=== PATIENT | male | born 1935 | race Caucasian/White ===

== ENCOUNTER 2016-11-29 15:26 | Outpatient (CLI) | payer MEDICARE, OTHER | END 2016-11-29 15:27 | disposition home or self-care (01) | DX: D64.9 Anemia, unspecified (principal) ==

== ENCOUNTER 2016-12-04 10:30 | Outpatient (CLI) | payer MEDICARE, OTHER | END 2016-12-04 10:31 | disposition home or self-care (01) | DX: D64.9 Anemia, unspecified (principal) ==

== ENCOUNTER 2017-01-18 10:00 | Outpatient (CLI) | payer MEDICARE, OTHER | END 2017-01-18 10:01 | disposition home or self-care (01) | DX: D64.9 Anemia, unspecified (principal) ==

== ENCOUNTER 2017-02-05 11:28 | Outpatient (CLI) | payer MEDICARE, OTHER | END 2017-02-05 11:29 | disposition home or self-care (01) | DX: C61 Malignant neoplasm of prostate (principal) ==

== ENCOUNTER 2017-08-06 12:43 | Outpatient (CLI) | payer MEDICARE, OTHER | END 2017-08-06 12:44 | disposition home or self-care (01) | LOC: LAB.N 12:43 | PROVIDERS: ATTEND Urology | DX: C61 Malignant neoplasm of prostate (principal) | CPT/HCPCS: 36415; 84153 ==

== ENCOUNTER 2018-03-27 09:58 | Emergency (ER) | payer MEDICARE, OTHER ==
--- NOTE | 2018-03-27 11:56 | XRAY Preliminary Report ---
Exam: XR HAND 3 VIEW LT IMPRESSION: No fracture or obvious posttraumatic bone or joint abnormality. 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 Areas of moderate soft tissue swelling, as discussed above as well. [facility] SITE ID: [id number]
--- NOTE | 2018-03-27 12:03 | XRAY Report ---
EXAM: LEFT HAND RADIOGRAPHY, 3 VIEWS EXAM DATE: 03/27/2018 11:39 AM. CLINICAL HISTORY: Contusion dorsal pain/swelling left hand, with pain in the MCP joint area of all di gits, in an 82-year-old male. COMPARISON: None. TECHNIQUE: Frontal, lateral and oblique views. FINDINGS: Bones: Hypertrophic spurring at multiple IP joints secondary to long-standing osteoarthritis. No frac ture, lytic or destructive process. Joints: Mild to moderate osteoarthritic changes in the MCP joints, worst in the first through third w ith moderate to severe osteoarthritis with hypertrophic changes and degenerative bone cysts at severa l levels, worst at the PIP joint of the ring finger and DIP joints of the index and fifth digit. 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 Moderate osteoarthritis radial aspect of the carpus. Carpus otherwise intact. Soft Tissues: Soft tissue swelling diffusely over the dorsum of the wrist and metacarpals without sof t tissue gas or foreign body. Mild to moderate soft tissue swelling of the third through fifth digits as well. IMPRESSION: No fracture or obvious posttraumatic bone or joint abnormality. 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 Areas of moderate soft tissue swelling, as discussed above as well. ANNABELLA Referring Provider Line: [phone] SITE ID: [id number]
--- NOTE | 2018-03-27 12:11 | ED Physician Documentation ---
PD HPI UPPER EXT INJURY - Stated complaint Stated Complaint: L HAND SWOLLEN-FALL - Chief complaint Chief Complaint: Ext Problem - History obtained from History obtained from: Patient - History of Present Illness Location: Left, Hand Type of injury: Fall Where injury occurred: Home Timing - onset: Last night Timing - duration: Days (1) Timing - details: Abrupt onset, Still present Improved by: Rest, Ice Worsened by: Moving, Palpating Associated symptoms: Swelling Contributing factors: No: Anticoagulated Similar symptoms before: Has not had sx before Recently seen: Not recently seen - Additonal information Additional information: 82 y/o male fell onto his left hand and now has swelling. Review of Systems Constitutional: denies: Fever Respiratory: denies: Cough GI: denies: Vomiting : denies: Dysuria Skin: denies: Rash Musculoskeletal: reports: Extremity pain, Extremity swelling Neurologic: denies: Generalized weakness, Focal weakness, Numbness PD PAST MEDICAL HISTORY - Past Medical History Past Medical History: Yes Cardiovascular: High cholesterol Respiratory: None Endocrine/Autoimmune: Other Psych: None Musculoskeletal: Osteoarthritis - Past Surgical History Past Surgical History: Yes General: Colonoscopy, Other /PATIENT REGISTRATION CLERK: Other Cardiovascular: CABG, Pacemaker - Present Medications Home Medications: Ambulatory Orders Medication Instructions Recorded Confirmed Carvedilol [Coreg] 3.125 mg PO BID #60 tablet 02/11/14 Levothyroxine [Synthroid] 125 mcg PO QDAC 02/11/14 02/11/14 Losartan [Cozaar] 50 mg PO ONCE 02/11/14 10/05/16 Pravastatin Sodium 40 mg PO DAILY 02/11/14 10/05/16 levoFLOXacin [Levaquin] 500 mg PO DAILY 10/05/16 10/05/16 Pregabalin [Lyrica] 100 mg PO TID 03/27/18 - Allergies Allergies/Adverse Reactions: Allergies Allergy/AdvReac Type Severity Reaction Status Date / Time No Known Drug Allergies Allergy Verified 03/27/18 10:23 - Social History Does the pt smoke?: No Smoking Status: Never smoker Does the pt drink ETOH?: No Does the pt have substance abuse?: No - Immunizations Immunizations are current?: Yes PD ED PE NORMAL - Vitals Vital signs reviewed: Yes (hypertension) - General General: Alert and oriented X 3, No acute distress, Well developed/nourished - HEENT HEENT: Atraumatic - Respiratory Respiratory: No respiratory distress - Derm Derm: Normal color, Warm and dry, No rash - Extremities Extremities: No deformity, Other (There is swelling and erythema to the dorsum of the left hand over the central hand. ) - Neuro Neuro: No motor deficit, No sensory deficit Eye Opening: Spontaneous Motor: Obeys Commands Verbal: Oriented GCS Score: 15 - Psych Psych: Normal mood, Normal affect Results - Vitals Vitals: Vital Signs - 24 hr 03/27/18 03/27/18 10:06 12:58 Temperature 36.5 C 36.3 C L Heart Rate 74 72 Respiratory 15 18 Rate Blood Pressure 145/85 H 167/74 H O2 Saturation 95 97 Oxygen O2 Source Room air - Rads (name of study) left hand Radiology: Prelim report reviewed (Impression no fracture or obvious posttraumatic bone or joint abnormality. 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 Areas of moderate soft tissue swelling, as discussed above as well.), EMP read indepedently, See rad report Procedures - Splint (location) left hand Splint applied by: Tech Type of splint: Fiberglass, Volar cock up Other: Patient tolerated well, No complications, Neurovascular intact, Good alignment PD MEDICAL DECISION MAKING - ED course Complexity details: reviewed results, re-evaluated patient, considered differential, d/w patient ED course: 82-year-old male has fallen on his hand and has some swelling. He is much more comfortable with the presence of the splint. There is no evidence of fracture on x-ray. Departure - Departure Disposition: 01 Home, Self Care Clinical Impression: Contusion of left hand Qualifiers: Encounter type: initial encounter Qualified Code(s): S60.222A - Contusion of left hand, initial encounter Condition: Stable Instructions: ED Contusion Hand Follow-Up: Gayathri Chin ARNP [Primary Care Provider] - Discharge Date/Time: 03/27/18 13:10
[2018-03-27 12:58] VITALS: BP 167/74
== END 2018-03-27 13:10 | disposition home or self-care (01) ==
LOC: ED 09:58
DX: S60.222A Contusion of left hand, initial encounter (principal); W18.39XA Other fall on same level, initial encounter; Y92.009 Unspecified place in unspecified non-institutional (private) residence as the place of occurrence of the external cause; E78.00 Pure hypercholesterolemia, unspecified; M19.90 Unspecified osteoarthritis, unspecified site; I25.10 Atherosclerotic heart disease of native coronary artery without angina pectoris; Z95.1 Presence of aortocoronary bypass graft; Z95.0 Presence of cardiac pacemaker
CPT/HCPCS: 29125; 99283

== ENCOUNTER 2018-07-04 08:00 | Outpatient (CLI) | payer MEDICARE, OTHER ==
[2018-07-04 18:24] LABS: BASOPHILS # (AUTO) 0.1 10^3/uL (0.0-0.1); BASOPHILS % (AUTO) 0.7 %; EOSINOPHILS # (AUTO) 0.5 10^3/uL (0.0-0.7); EOSINOPHILS % (AUTO) 6.5 %; HGB - HEMOGLOBIN 11.7 g/dL (14.0-18.0); LYMPHOCYTES % (AUTO) 12.5 %; MEAN CORPUSCULAR HEMOGLOBIN 30.4 pg (27.0-31.0); MEAN CORPUSCULAR VOLUME 89.3 fL (80.0-94.0); MEAN PLATELET VOLUME 9.2 fL (7.4-11.4); MONOCYTES # (AUTO) 0.7 10^3/uL (0.0-1.0); MONOCYTES % (AUTO) 8.4 %; NEUTROPHILS # (AUTO) 5.9 10^3/uL (1.5-6.6); NEUTROPHILS % (AUTO) 71.9 %; PLT - PLATELET COUNT 161 10^3/uL (130-450); RED BLOOD COUNT 3.84 10^6/uL (4.70-6.10); RED CELL DISTRIBUTION WIDTH 15.2 % (12.0-15.0); WHITE BLOOD COUNT 8.3 x10^3/uL (4.8-10.8)
[2018-07-04 19:21] LABS: CALCIUM 8.2 mg/dL (8.5-10.3); CREATININE 1.1 mg/dL (0.6-1.2)
== END 2018-07-04 08:01 | disposition home or self-care (01) ==
LOC: LAB.N 08:00
PROVIDERS: ATTEND Nurse Practitioner Gerontology
DX: I10 Essential (primary) hypertension (principal)
CPT/HCPCS: 36415; 80048; 85025

== ENCOUNTER 2018-08-07 13:35 | Outpatient (CLI) | payer MEDICARE, OTHER ==
[2018-08-07 19:31] LABS: CALCIUM 8.6 mg/dL (8.5-10.3)
== END 2018-08-07 13:36 | disposition home or self-care (01) ==
LOC: LAB.N 13:35
PROVIDERS: ATTEND Nurse Practitioner Gerontology
DX: I10 Essential (primary) hypertension (principal); E87.1 Hypo-osmolality and hyponatremia
CPT/HCPCS: 36415; 80048

== ENCOUNTER 2018-10-13 10:17 | Outpatient (CLI) | payer MEDICARE, OTHER ==
[2018-10-13 19:13] LABS: BASOPHILS # (AUTO) 0.1 10^3/uL (0.0-0.1); BASOPHILS % (AUTO) 1.1 %; EOSINOPHILS # (AUTO) 0.3 10^3/uL (0.0-0.7); EOSINOPHILS % (AUTO) 4.1 %; HGB - HEMOGLOBIN 12.7 g/dL (14.0-18.0); LYMPHOCYTES # (AUTO) 0.9 10^3/uL (1.5-3.5); LYMPHOCYTES % (AUTO) 11.7 %; MEAN CORPUSCULAR HEMOGLOBIN 29.7 pg (27.0-31.0); MEAN CORPUSCULAR HGB CONC 33.5 g/dL (32.0-36.0); MEAN CORPUSCULAR VOLUME 88.7 fL (80.0-94.0); MEAN PLATELET VOLUME 8.2 fL (7.4-11.4); MONOCYTES # (AUTO) 0.7 10^3/uL (0.0-1.0); MONOCYTES % (AUTO) 8.4 %; NEUTROPHILS # (AUTO) 5.9 10^3/uL (1.5-6.6); NEUTROPHILS % (AUTO) 74.7 %; PLT - PLATELET COUNT 246 10^3/uL (130-450); RED BLOOD COUNT 4.26 10^6/uL (4.70-6.10); RED CELL DISTRIBUTION WIDTH 14.2 % (12.0-15.0); WHITE BLOOD COUNT 7.8 x10^3/uL (4.8-10.8)
[2018-10-13 19:40] LABS: ALBUMIN/GLOBULIN RATIO 1.3 (1.0-2.2); BILIRUBIN,TOTAL 0.4 mg/dL (0.2-1.0); TOTAL PROTEIN 7.2 g/dL (6.7-8.2)
== END 2018-10-13 23:59 | disposition home or self-care (01) ==
LOC: LAB.N 10:17
PROVIDERS: ATTEND Urology
DX: Z85.46 Personal history of malignant neoplasm of prostate (principal); Z85.51 Personal history of malignant neoplasm of bladder
CPT/HCPCS: 36415; 80053; 82607; 84153; 85025

== ENCOUNTER 2018-10-16 15:26 | Outpatient (CLI) | payer MEDICARE, OTHER ==
--- NOTE | 2018-10-16 16:10 | XRAY Report ---
Reason: HISTORY OF PROSTATE CANCER, HISTORY OF BLADDER CAN Procedure Date: 10/16/2018 Accession Number: [id number] / [id number] Procedure: XRN - Chest 2 View X-Ray CPT Code: 29335 FULL RESULT: EXAM: CHEST RADIOGRAPHY EXAM DATE: 10/16/2018 03:42 PM. CLINICAL HISTORY: history of prostate cancer, history of bladder cancer. COMPARISON: CHEST 2 VIEW PA/LAT 10/05/2016 7:09 PM. TECHNIQUE: 2 views. FINDINGS: Lungs/Pleura: No focal opacities evident. No pleural effusion. No pneumothorax. Normal volumes. Mediastinum: The cardiac silhouette is stable and without cardiomegaly with a tortuous partially calcified aorta. Other: None. IMPRESSION: No pulmonary masses are seen. Sensitivity of chest radiograph for osseous metastasis is very limited. [facility]
== END 2018-10-16 15:27 | disposition home or self-care (01) ==
LOC: DI.N 15:26
PROVIDERS: ATTEND Urology
DX: Z85.46 Personal history of malignant neoplasm of prostate (principal); Z85.51 Personal history of malignant neoplasm of bladder
CPT/HCPCS: 71046

== ENCOUNTER 2019-01-02 13:00 | Outpatient (CLI) | payer MEDICARE, OTHER ==
[2019-01-02 19:41] LABS: ALBUMIN 3.9 g/dL (3.2-5.5); ALBUMIN/GLOBULIN RATIO 1.2 (1.0-2.2); BILIRUBIN,TOTAL 0.8 mg/dL (0.2-1.0); CALCIUM 8.8 mg/dL (8.5-10.3); CREATININE 0.9 mg/dL (0.6-1.2); TOTAL PROTEIN 7.1 g/dL (6.7-8.2)
== END 2019-01-02 23:59 | disposition home or self-care (01) ==
LOC: LAB.N 13:00
PROVIDERS: ATTEND Internal Medicine Cardiovascular Disease
DX: E87.1 Hypo-osmolality and hyponatremia (principal)
CPT/HCPCS: 36415; 80053; 83735; 84443

== ENCOUNTER 2019-01-13 08:00 | Outpatient (CLI) | payer MEDICARE, OTHER ==
[2019-01-13 13:09] LABS: CALCIUM 8.9 mg/dL (8.5-10.3); CREATININE 0.9 mg/dL (0.6-1.2)
== END 2019-01-13 23:59 | disposition home or self-care (01) ==
LOC: LAB.N 08:00
PROVIDERS: ATTEND Internal Medicine Cardiovascular Disease
DX: E87.1 Hypo-osmolality and hyponatremia (principal)
CPT/HCPCS: 36415; 80048; 83930

== ENCOUNTER 2019-02-02 08:00 | Outpatient (CLI) | payer MEDICARE, OTHER ==
[2019-02-02 12:53] LABS: CALCIUM 9.1 mg/dL (8.5-10.3); CREATININE 0.9 mg/dL (0.6-1.2)
== END 2019-02-02 08:01 | disposition home or self-care (01) ==
LOC: LAB.N 08:00
PROVIDERS: ATTEND Nurse Practitioner Gerontology
DX: E87.1 Hypo-osmolality and hyponatremia (principal); R94.6 Abnormal results of thyroid function studies
CPT/HCPCS: 36415; 80048; 84443

== ENCOUNTER 2019-03-10 09:20 | Outpatient (CLI) | payer MEDICARE, OTHER ==
[2019-03-10 12:39] LABS: BASOPHILS # (AUTO) 0.1 10^3/uL (0.0-0.1); BASOPHILS % (AUTO) 0.8 %; EOSINOPHILS # (AUTO) 0.4 10^3/uL (0.0-0.7); EOSINOPHILS % (AUTO) 5.3 %; HGB - HEMOGLOBIN 10.4 g/dL (14.0-18.0); LYMPHOCYTES # (AUTO) 1.1 10^3/uL (1.5-3.5); LYMPHOCYTES % (AUTO) 14.9 %; MEAN CORPUSCULAR HEMOGLOBIN 28.6 pg (27.0-31.0); MEAN CORPUSCULAR HGB CONC 33.2 g/dL (32.0-36.0); MEAN CORPUSCULAR VOLUME 86.1 fL (80.0-94.0); MONOCYTES # (AUTO) 0.8 10^3/uL (0.0-1.0); MONOCYTES % (AUTO) 11.2 %; NEUTROPHILS # (AUTO) 4.8 10^3/uL (1.5-6.6); NEUTROPHILS % (AUTO) 67.8 %; PLT - PLATELET COUNT 363 10^3/uL (130-450); RED BLOOD COUNT 3.64 10^6/uL (4.70-6.10); WHITE BLOOD COUNT 7.1 x10^3/uL (4.8-10.8)
[2019-03-10 13:02] LABS: RBC MORPHOLOGY (MULTIPLE) 2+ ANISOCYTOSIS (NORMAL)
[2019-03-10 13:16] LABS: CALCIUM 8.4 mg/dL (8.5-10.3); CREATININE 1.2 mg/dL (0.6-1.2)
[2019-03-10 13:17] LABS: THYROID STIMULATING HORMONE 1.03 uIU/mL (0.34-5.60)
[2019-03-10 13:23] LABS: PROLACTIN 10.84 ng/mL
== END 2019-03-10 23:59 | disposition home or self-care (01) ==
LOC: LAB.N 09:20
PROVIDERS: ATTEND Nurse Practitioner Gerontology
DX: N39.0 Urinary tract infection, site not specified (principal); I10 Essential (primary) hypertension; D64.9 Anemia, unspecified; E87.1 Hypo-osmolality and hyponatremia; E22.1 Hyperprolactinemia; E03.9 Hypothyroidism, unspecified
CPT/HCPCS: 36415; 80048; 84146; 84443; 85025

== ENCOUNTER 2019-04-02 08:00 | Outpatient (CLI) | payer MEDICARE, OTHER ==
[2019-04-02 18:56] LABS: ABSOLUTE RETICS # AUTO 0.054 10^6/uL (0.020-0.110); RED BLOOD COUNT 3.98 10^6/uL (4.70-6.10)
== END 2019-04-02 23:59 | disposition home or self-care (01) ==
LOC: LAB.N 08:00
PROVIDERS: ATTEND Internal Medicine Cardiovascular Disease
DX: I48.0 Paroxysmal atrial fibrillation (principal)
CPT/HCPCS: 36415; 85044

== ENCOUNTER 2019-04-23 08:00 | Outpatient (CLI) | payer MEDICARE, OTHER ==
[2019-04-23 19:55] LABS: CALCIUM 8.7 mg/dL (8.5-10.3); CREATININE 1.1 mg/dL (0.6-1.2)
== END 2019-04-23 23:59 | disposition home or self-care (01) ==
LOC: LAB.N 08:00
PROVIDERS: ATTEND Nurse Practitioner Gerontology
DX: E87.1 Hypo-osmolality and hyponatremia (principal)
CPT/HCPCS: 36415; 80048

== ENCOUNTER 2019-07-14 08:00 | Outpatient (CLI) | payer MEDICARE, OTHER ==
[2019-07-14 12:25] LABS: CALCIUM 8.7 mg/dL (8.5-10.3)
== END 2019-07-14 23:59 | disposition home or self-care (01) ==
LOC: LAB.N 08:00
PROVIDERS: ATTEND Nurse Practitioner Gerontology
DX: E87.1 Hypo-osmolality and hyponatremia (principal)
CPT/HCPCS: 36415; 80048

== ENCOUNTER 2019-10-05 09:42 | Outpatient (CLI) | payer MEDICARE, OTHER ==
[2019-10-05 16:39] LABS: CHOL/HDL RATIO 2.2 (<5.0); CHOLESTEROL 121 mg/dL; HDL CHOLESTEROL 56 mg/dL; LDL CHOLESTEROL,CALCULATED 41 mg/dL; LDL/HDL RATIO 0.7 (<3.6); VLDL CHOLESTEROL 24 mg/dL
== END 2019-10-05 23:59 | disposition home or self-care (01) ==
LOC: LAB.N 09:42
PROVIDERS: ATTEND Internal Medicine Cardiovascular Disease
DX: E78.5 Hyperlipidemia, unspecified (principal); E87.1 Hypo-osmolality and hyponatremia
CPT/HCPCS: 36415; 80048; 80061; 83721

== ENCOUNTER 2019-10-29 09:56 | Outpatient (CLI) | payer MEDICARE, OTHER ==
[2019-10-29 11:53] LABS: BASOPHILS # (AUTO) 0.1 10^3/uL (0.0-0.1); BASOPHILS % (AUTO) 0.9 %; EOSINOPHILS # (AUTO) 0.7 10^3/uL (0.0-0.7); EOSINOPHILS % (AUTO) 7.1 %; HGB - HEMOGLOBIN 10.5 g/dL (14.0-18.0); LYMPHOCYTES # (AUTO) 1.2 10^3/uL (1.5-3.5); LYMPHOCYTES % (AUTO) 12.7 %; MEAN CORPUSCULAR HEMOGLOBIN 26.9 pg (27.0-31.0); MEAN CORPUSCULAR HGB CONC 31.6 g/dL (32.0-36.0); MEAN CORPUSCULAR VOLUME 85.1 fL (80.0-94.0); MEAN PLATELET VOLUME 10.3 fL (7.4-11.4); MONOCYTES # (AUTO) 0.9 10^3/uL (0.0-1.0); MONOCYTES % (AUTO) 10.1 %; NEUTROPHILS # (AUTO) 6.3 10^3/uL (1.5-6.6); NEUTROPHILS % (AUTO) 68.9 %; PLT - PLATELET COUNT 290 10^3/uL (130-450); RED CELL DISTRIBUTION WIDTH 14.2 % (12.0-15.0); WHITE BLOOD COUNT 9.1 x10^3/uL (4.8-10.8)
[2019-10-29 12:03] LABS: ALBUMIN 3.3 g/dL (3.2-5.5); ALBUMIN/GLOBULIN RATIO 0.9 (1.0-2.2); BILIRUBIN,TOTAL 0.3 mg/dL (0.2-1.0); CALCIUM 8.5 mg/dL (8.5-10.3); TOTAL PROTEIN 6.8 g/dL (6.7-8.2)
== END 2019-10-29 23:59 | disposition home or self-care (01) ==
LOC: LAB.N 09:56
PROVIDERS: ATTEND Urology
DX: Z85.51 Personal history of malignant neoplasm of bladder (principal); Z12.5 Encounter for screening for malignant neoplasm of prostate
CPT/HCPCS: 36415; 80053; 82607; 84153; 85025

== ENCOUNTER 2019-10-29 12:51 | Outpatient (CLI) | payer MEDICARE, OTHER ==
--- NOTE | 2019-10-29 14:13 | XRAY Report ---
Reason: HX OF BLADDER CA Procedure Date: 10/29/2019 Accession Number: [id number] / [id number] Procedure: XRN - Chest 2 View X-Ray CPT Code: 10436 Final Report FULL RESULT: EXAM: CHEST RADIOGRAPHY EXAM DATE: 10/29/2019 01:09 PM. CLINICAL HISTORY: HX OF BLADDER CA. COMPARISON: CHEST 2 VIEW 10/16/2018 3:46 PM. TECHNIQUE: 2 views. FINDINGS: Lungs/Pleura: No focal opacities evident. No pleural effusion. No pneumothorax. Mediastinum: There is no cardiomegaly. Tortuous descending thoracic aorta and the calcified aortic arch are again noted, similar to prior exam. Other: None. IMPRESSION: Interval stable 2-view chest radiography. [facility]
== END 2019-10-29 12:52 | disposition home or self-care (01) ==
LOC: DI.N 12:51
PROVIDERS: ATTEND Urology
DX: Z85.51 Personal history of malignant neoplasm of bladder (principal); Z12.5 Encounter for screening for malignant neoplasm of prostate
CPT/HCPCS: 36415; 71046; 80053; 82607; 85025; G0103; 84153

== ENCOUNTER 2020-02-01 14:48 | Outpatient (CLI) | payer MEDICARE, OTHER | END 2020-02-01 14:49 | disposition home or self-care (01) | LOC: COV 14:48 | PROVIDERS: ATTEND Family Medicine | DX: R05 Cough (principal) | CPT/HCPCS: 81599 ==

== ENCOUNTER 2020-05-23 13:11 | Outpatient (CLI) | payer MEDICARE, OTHER | END 2020-05-23 13:12 | disposition short-term general hospital (02) | LOC: EMS 13:11 | PROVIDERS: ATTEND Surgery | DX: M25.552 Pain in left hip (principal); W01.0XXA Fall on same level from slipping, tripping and stumbling without subsequent striking against object, initial encounter; Y92.000 Kitchen of unspecified non-institutional (private) residence as the place of occurrence of the external cause | CPT/HCPCS: A0425; A0429 ==

== ENCOUNTER 2021-04-14 09:48 | Outpatient (CLI) | payer MEDICARE, OTHER ==
[2021-04-14 12:18] LABS: CHOLESTEROL 127 mg/dL; HDL CHOLESTEROL 63 mg/dL; LDL CHOLESTEROL,CALCULATED 48 mg/dL; LDL/HDL RATIO 0.8 (<3.6); TRIGLYCERIDES 81 mg/dL; VLDL CHOLESTEROL 16 mg/dL
== END 2021-04-14 23:59 | disposition home or self-care (01) ==
LOC: LAB.WCP 09:48
PROVIDERS: ATTEND Internal Medicine
DX: Z13.220 Encounter for screening for lipoid disorders (principal)
CPT/HCPCS: 36415; 80061; 83721

== ENCOUNTER 2021-06-06 10:10 | Outpatient (CLI) | payer MEDICARE, OTHER ==
[2021-06-06 18:52] LABS: BASOPHILS # (AUTO) 0.1 10^3/uL (0.0-0.1); EOSINOPHILS # (AUTO) 0.5 10^3/uL (0.0-0.7); EOSINOPHILS % (AUTO) 6.7 %; HCT - HEMATOCRIT 31.8 % (42.0-52.0); HGB - HEMOGLOBIN 9.6 g/dL (14.0-18.0); LYMPHOCYTES # (AUTO) 1.1 10^3/uL (1.5-3.5); LYMPHOCYTES % (AUTO) 15.1 %; MEAN CORPUSCULAR HEMOGLOBIN 23.7 pg (27.0-31.0); MEAN CORPUSCULAR HGB CONC 30.2 g/dL (32.0-36.0); MEAN CORPUSCULAR VOLUME 78.5 fL (80.0-94.0); MEAN PLATELET VOLUME 10.2 fL (7.4-11.4); MONOCYTES % (AUTO) 13.8 %; NEUTROPHILS # (AUTO) 4.4 10^3/uL (1.5-6.6); PLT - PLATELET COUNT 260 10^3/uL (130-450); RED BLOOD COUNT 4.05 10^6/uL (4.70-6.10); RED CELL DISTRIBUTION WIDTH 15.4 % (12.0-15.0)
[2021-06-06 19:15] LABS: ALBUMIN 3.6 g/dL (3.2-5.5); ALBUMIN/GLOBULIN RATIO 1.2 (1.0-2.2); ALKALINE PHOSPHATASE 64 IU/L (42-121); ALT ALANINE AMINOTRANSFERASE 16 IU/L (10-60); AST ASPARTATE AMINOTRANSFERASE 28 IU/L (10-42); BILIRUBIN,TOTAL 0.5 mg/dL (0.2-1.0); BUN - BLOOD UREA NITROGEN 12 mg/dL (6-20); CALCIUM 8.6 mg/dL (8.5-10.3); CARBON DIOXIDE - CO2 30 mmol/L (21-32); CHLORIDE 85 mmol/L (101-111); CHOLESTEROL 129 mg/dL; CREATININE 0.8 mg/dL (0.6-1.2); GFR - MDRD 92 (>89); GLUCOSE 87 mg/dL (70-100); HDL CHOLESTEROL 64 mg/dL; LDL CHOLESTEROL,CALCULATED 38 mg/dL; LDL/HDL RATIO 0.6 (<3.6); SODIUM 122 mmol/L (135-145); TOTAL PROTEIN 6.7 g/dL (6.7-8.2); TRIGLYCERIDES 135 mg/dL; VLDL CHOLESTEROL 27 mg/dL
== END 2021-06-06 23:59 | disposition home or self-care (01) ==
LOC: LAB.WCP 10:10
PROVIDERS: ATTEND Internal Medicine Cardiovascular Disease
DX: E78.5 Hyperlipidemia, unspecified (principal); Z12.5 Encounter for screening for malignant neoplasm of prostate; Z85.51 Personal history of malignant neoplasm of bladder
CPT/HCPCS: 36415; 80053; 80061; 82607; 85025; G0103; 83721; 84153

== ENCOUNTER 2021-06-16 14:39 | Outpatient (CLI) | payer MEDICARE, OTHER ==
[2021-06-16 19:03] LABS: CALCIUM 8.6 mg/dL (8.5-10.3); POTASSIUM 4.7 mmol/L (3.5-5.0)
== END 2021-06-16 23:59 | disposition home or self-care (01) ==
LOC: LAB.WCP 14:39
PROVIDERS: ATTEND Internal Medicine Cardiovascular Disease
DX: E87.1 Hypo-osmolality and hyponatremia (principal)
CPT/HCPCS: 36415; 80048

== ENCOUNTER 2021-08-30 08:00 | Outpatient (CLI) | payer MEDICARE, OTHER ==
[2021-08-30 18:02] LABS: BASOPHILS # (AUTO) 0.1 10^3/uL (0.0-0.1); BASOPHILS % (AUTO) 0.8 %; EOSINOPHILS # (AUTO) 0.4 10^3/uL (0.0-0.7); EOSINOPHILS % (AUTO) 4.4 %; HCT - HEMATOCRIT 35.6 % (42.0-52.0); HGB - HEMOGLOBIN 11.1 g/dL (14.0-18.0); LYMPHOCYTES % (AUTO) 10.5 %; MEAN CORPUSCULAR HEMOGLOBIN 26.4 pg (27.0-31.0); MEAN CORPUSCULAR HGB CONC 31.2 g/dL (32.0-36.0); MEAN CORPUSCULAR VOLUME 84.6 fL (80.0-94.0); MEAN PLATELET VOLUME 9.9 fL (7.4-11.4); MONOCYTES # (AUTO) 1.1 10^3/uL (0.0-1.0); MONOCYTES % (AUTO) 11.6 %; NEUTROPHILS # (AUTO) 6.6 10^3/uL (1.5-6.6); NEUTROPHILS % (AUTO) 72.3 %; PLT - PLATELET COUNT 317 10^3/uL (130-450); RED BLOOD COUNT 4.21 10^6/uL (4.70-6.10); RED CELL DISTRIBUTION WIDTH 18.2 % (12.0-15.0); WHITE BLOOD COUNT 9.1 x10^3/uL (4.8-10.8)
[2021-08-30 18:24] LABS: CALCIUM 9.1 mg/dL (8.5-10.3); CREATININE 1.1 mg/dL (0.6-1.2); POTASSIUM 4.7 mmol/L (3.5-5.0)
[2021-08-30 18:28] LABS: THYROID STIMULATING HORMONE 0.84 uIU/mL (0.34-5.60)
== END 2021-08-30 23:59 | disposition home or self-care (01) ==
LOC: LAB.WCP 08:00
PROVIDERS: ATTEND Family Medicine
DX: I48.92 Unspecified atrial flutter (principal); D50.9 Iron deficiency anemia, unspecified; E87.1 Hypo-osmolality and hyponatremia; E03.9 Hypothyroidism, unspecified
CPT/HCPCS: 36415; 80048; 82728; 83540; 84443; 84466; 85025

== ENCOUNTER 2021-12-26 12:12 | Outpatient (CLI) | payer MEDICARE, OTHER | END 2021-12-26 12:13 | disposition short-term general hospital (02) | LOC: EMS 12:12 | DX: Z04.3 Encounter for examination and observation following other accident (principal); M25.511 Pain in right shoulder | CPT/HCPCS: A0425; A0427 ==

== ENCOUNTER 2022-01-05 11:16 | Outpatient (CLI) | payer MEDICARE, OTHER ==
[2022-01-05 18:04] LABS: BASOPHILS # (AUTO) 0.1 10^3/uL (0.0-0.1); BASOPHILS % (AUTO) 0.9 %; EOSINOPHILS # (AUTO) 0.6 10^3/uL (0.0-0.7); EOSINOPHILS % (AUTO) 5.4 %; HCT - HEMATOCRIT 33.1 % (42.0-52.0); HGB - HEMOGLOBIN 10.4 g/dL (14.0-18.0); LYMPHOCYTES # (AUTO) 0.9 10^3/uL (1.5-3.5); MEAN CORPUSCULAR HEMOGLOBIN 27.6 pg (27.0-31.0); MEAN CORPUSCULAR HGB CONC 31.4 g/dL (32.0-36.0); MEAN CORPUSCULAR VOLUME 87.8 fL (80.0-94.0); MEAN PLATELET VOLUME 10.5 fL (7.4-11.4); MONOCYTES # (AUTO) 0.9 10^3/uL (0.0-1.0); NEUTROPHILS # (AUTO) 7.8 10^3/uL (1.5-6.6); NEUTROPHILS % (AUTO) 75.1 %; PLT - PLATELET COUNT 364 10^3/uL (130-450); RED BLOOD COUNT 3.77 10^6/uL (4.70-6.10); RED CELL DISTRIBUTION WIDTH 16.9 % (12.0-15.0); WHITE BLOOD COUNT 10.4 x10^3/uL (4.8-10.8)
[2022-01-05 18:15] LABS: ALBUMIN 3.3 g/dL (3.2-5.5); ALBUMIN/GLOBULIN RATIO 0.9 (1.0-2.2); BILIRUBIN,TOTAL 0.4 mg/dL (0.2-1.0); CALCIUM 9.1 mg/dL (8.5-10.3); CREATININE 0.9 mg/dL (0.6-1.2); POTASSIUM 4.7 mmol/L (3.5-5.0)
== END 2022-01-05 11:17 | disposition home or self-care (01) ==
LOC: LAB.N 11:16
PROVIDERS: ATTEND Nurse Practitioner Family
DX: R60.9 Edema, unspecified (principal)
CPT/HCPCS: 36415; 80053; 85025

== ENCOUNTER 2022-01-17 16:44 | Outpatient (CLI) | payer MEDICARE, OTHER | END 2022-01-17 16:45 | disposition EMS.NT | LOC: EMS 16:44 | DX: S51.012A Laceration without foreign body of left elbow, initial encounter (principal); S51.812A Laceration without foreign body of left forearm, initial encounter; W10.8XXA Fall (on) (from) other stairs and steps, initial encounter; Y93.01 Activity, walking, marching and hiking; Y92.008 Other place in unspecified non-institutional (private) residence as the place of occurrence of the external cause ==

== ENCOUNTER 2022-01-18 03:25 | Outpatient (CLI) | payer MEDICARE, OTHER | END 2022-01-18 03:26 | disposition short-term general hospital (02) | LOC: EMS 03:25 | DX: R53.1 Weakness (principal); M25.561 Pain in right knee; W18.30XA Fall on same level, unspecified, initial encounter; Y92.009 Unspecified place in unspecified non-institutional (private) residence as the place of occurrence of the external cause | CPT/HCPCS: A0425; A0429 ==

== ENCOUNTER 2022-05-03 11:25 | Outpatient (CLI) | payer MEDICARE, OTHER | END 2022-05-03 11:26 | disposition short-term general hospital (02) | LOC: EMS 11:25 | DX: R82.90 Unspecified abnormal findings in urine (principal); I95.9 Hypotension, unspecified; Z74.09 Other reduced mobility | CPT/HCPCS: A0425; A0427 ==